=== PATIENT | male | born 1955 | race Caucasian/White ===

== ENCOUNTER 2024-03-12 08:16 | Inpatient (IN) | payer OTHER ==
[2024-03-12] MEDS ORDERED: ACETAMINOPHEN 325 MG TABLET PO PRN (13:26)
[2024-03-12] MEDS ORDERED: HYDROCODONE/APAP 5/325 MG TAB PO PRN (13:33)
[2024-03-12] MEDS: CARBIDOPA/LEVODOPA 25/100 TAB PO SCH (14:25)
[2024-03-12 14:50] VITALS: BMI 20.6
[2024-03-12 18:26] LABS: Specific Gravity > 1.030 (1.005-1.030); Sqamous Epithelial None Seen /HPF (None Seen); Urine Bacteria <20 /HPF (<20); Urine Bilirubin NEGATIVE (Negative); Urine Blood 3+ (OVER) (Negative); Urine Clarity Extremely Turbid (Clear); Urine Color Orange (Yellow); Urine Culture Reflex Order REFLEXED; Urine Glucose NEGATIVE (Negative); Urine Ketones TRACE (Negative); Urine Micro Reflex YN NO BILL MICROSCOPIC; Urine Mucus 4+ /HPF (None Seen); Urine Nitrite NEGATIVE (Negative); Urine Protein 1+ (Negative); Urine RBC >50 /HPF (None Seen); Urine Urobilinogen 2+ (Normal); Urine WBC >50 /HPF (<5); Urine WBC Clump Moderate /HPF (None Seen); Urine Yeast (Budding) Few /HPF (None Seen)
[2024-03-12] MEDS: ONDANSETRON 4 MG (ODT) TAB PO PRN (19:43)
[2024-03-12] MEDS: SENOSIDES 8.6 MG TAB PO SCH (20:29)
[2024-03-12] MEDS: MELATONIN 3 MG TABLET PO PRN (20:29)
[2024-03-12] MEDS: oxyBUTYnin chloride 5 MG TAB PO SCH (20:29)
[2024-03-12] MEDS: FAMOTIDINE 20 MG TAB PO SCH (20:29)
[2024-03-12] MEDS: APIXABAN 2.5 MG TABLET PO SCH (20:30)
[2024-03-12] MEDS: NYSTATIN PWDR 100000 UNIT/GM TOP SCH (20:30)
[2024-03-12] MEDS: ATORVASTATIN 40 MG TAB PO SCH (20:30)
[2024-03-13 04:22] LABS: Absolute Basophils 0.1 K/uL (0-0.5); Absolute Eosinophils 0.2 K/uL (0-0.5); Absolute Lymphocytes (CBC) 1.1 K/uL (0.7-4.9); Absolute Monocytes 0.5 K/uL (0.1-1.3); Absolute Neutrophil 3.9 K/uL (1.8-8.0); Basophils % 0.9 % (0-1.3); Eosinophils % 3.3 % (0-4.4); Hematocrit 33.3 % (39.6-49.0); Hemoglobin 11.3 g/dL (13.6-17.9); Lymphocytes % 18.6 % (15.3-44.8); MPV 10.1 fL (7.6-11.3); Monocytes % 9.4 % (3.3-12.3); Neutrophils % 67.8 % (41.7-73.7); Platelets 176 thou/uL (152-406); RBC Red Blood Cell Count 3.54 M/uL (4.33-5.43)
--- NOTE | 2024-03-13 04:33 | HP ---
Date of Admission: 03/12/2024 Time Of Service: 1 p.m. Chief Complaint: "I fell and broke my ribs." History Of Present Illness: Mr. Espinosa is a 68-year-old patient, who was admitted to [facility] on February 11, 2024, after a fall at home. He had been steadily declining over the past month due to worsening Parkinson's disease with shuffling gait, tremors, and increased stiffness. When he fell, carlos mendez suffered severe pain in the chest, actually in the left, and found there were 3 broken ribs and he was imaged. He developed a hemothorax and was seen at [facility] for procedure with rib plating that is the VATS procedure. It was done on February 15, 2024. He had a bronchoscope done as the proce dure was done and the sputum culture showed ESBL bacteremia in the sputum. He also had a transesopha geal echocardiogram and cardioversion to treat atrial fibrillation with rapid ventricular response th at was on the 19 of February. He returned to [facility] on 02/23/2024 for therapy. Since that time, he has had significant issues of pain management, treatment with antibiotics for the ESBL E. coli, which ended on March 04. He was still put on isolation precautions with lab monitoring t o determine if he needs additional antibiotics. His hospital course was complicated by weakness, poo r endurance, pain, and the atrial fibrillation which required ongoing monitoring. In addition, the h emothorax also needed subsequent followup. It is noted again prior to his hospitalization, he had a 1 month decline where while living alone, he was able to ambulate with a front wheel walker without a ssistive device. He did navigate a single step into his house and was still independent with ADLs, c ooking, and laundry. His daughter noted that he had concerns of nighttime getting up to use the bath room where he had a risk of falling. Currently, he is at a level of minimum assistance for bed mobil ization and maintaining upright posture while urinating and contact guard to minimal assistance for s it-to-stand transfers for balancing, standing. At this point, he is medically cleared for inpatient rehabilitation and will then be admitted to the unit for physical, occupational, and if need be speec h therapy along with medical management and discharge planning to avoid his rehospitalization and to help him thrive after discharge. Past Medical History: Atrial fibrillation, stroke, dyslipidemia, hypothyroidism, Parkinson's disease , video-assisted thorascopic surgery, transesophageal echocardiogram, stroke during surgery, heart va lve repair, knee replacement, and sepsis. Allergies: NO KNOWN DRUG ALLERGIES. Medications: Tylenol 650 mg every 4 hours as needed, Cordarone 200 mg daily, Eliquis 2.5 mg twice da jose luis, aspirin 81 mg daily, Lipitor 40 mg at bedtime, Sinemet 25/100, he takes 2 tabs in the morning, 1 at noon, and 1 in the evening, vitamin D 5000 units daily, Pepcid 20 mg twice daily, ferrous sulfate 325 mg daily, [place] 5/325 every 6 hours as needed, levothyroxine 0.112 mg daily, lidocaine patch arabella ly topically daily, melatonin 3 mg at bedtime, nystatin powder apply topically twice daily, Zofran 4 mg every 4 hours as needed, Ditropan 5 mg twice daily, Senokot 8.6 mg twice daily, Ultram 50 mg every 6 hours as needed. He is also on Glycolax 17 g daily. Family History: Noncontributory. Social History: The patient lives with a family close by. No alcohol, tobacco, or IV drug use. Review of Systems: As noted, he has had increased stiffness, difficulty with gait and balance, and mild tremor, especial ly worse in the morning when he is off his Parkinson's medication prior to receiving his first dose i n the morning. Current Level Of Functioning: Setup assistance for eating, setup also for oral hygiene and toileting , moderate assistance for his showering, upper body dressing, lower body dressing, donning and doffin g footwear, moderate assistance for rolling [id number], for lin-cj-[id number], and for sliding in the b ed. For transfers from bed to chair to toilet, all moderate assistance. For ambulation, contact loretta shaw assistance. With a rolling walker, he covered 125 feet. Review of Systems: He denies any recent fevers or chills. Some mild shortness of breath, myalgias, arthralgias. No kindra h. No headaches. No active psychiatric issues. Some difficulty again with bowel and bladder, able to get to the bathroom in time. No other positives on the systems review. Physical Examination: Vital Signs: Blood pressure 132/85, pulse 76, respiratory rate 16, temperature 97.2, oxygen saturati on 98%. Weight 147 pounds, height 5 feet 11 inches, BMI 20. General: Mr. Espinosa is resting comfortably. He reports mild pain in the rib area where he had frac tures and some mild pain in the left knee and he has right rib fractures. HEENT: He is otherwise normocephalic and atraumatic. His sclerae are anicteric. Oropharynx is mois t. Neck: Supple. Chest: Clear. Heart: Regular. Extremities: No significant edema in the extremities. Neurological: He has no focal deficits with guarding where he has rib fractures and some mild pain i n the knee. Otherwise, feet moving well. Arms are moving well without significant restrictions. Rehabilitation And Medical Assessment And Plan: Mr. Espinosa is admitted to the inpatient rehabilitat ion unit with impairment category 06, neurologic condition. His impairment group code is 03.2, parki nsonism. Etiologic diagnosis, Parkinson's disease. His comorbidities are atrial fibrillation, debil ity, decreased physical functioning, decreased mobility, hematuria, hypercholesterolemia, hyponatremi a, hypothyroidism, anemia, he is status post thoracotomy and multiple rib fractures. Plan: 1.He will have physical, occupational, and if need be speech therapy for 3.5 hours, 5 of 7 days. We will continue the carbidopa/levodopa 25/100, 2 in the morning, 1 at noon, and 1 at afternoon for Par kinson's disease. Continue Lipitor 40 mg at bedtime for dyslipidemia. Continue aspirin 81 mg daily and Eliquis 2.5 mg daily for stroke and DVT risk reduction. 2.Continue amiodarone 200 mg daily for heart rate control and blood pressure management. Also, Norc o 5/325 and Tylenol 650 mg as needed for pain every 6 hours. Vitamin D for low vitamin D. Continue ferrous sulfate for anemia, Pepcid for GE reflux, and Synthroid 0.112 mg daily for hypothyroidism, li docaine patch apply to the rib fractures, melatonin for insomnia, Zofran for reflux, Mycostatin powde r for fungal infection, Ditropan for urinary retention, Senokot-S for constipation, tramadol for mild -to-moderate pain. Comorbidities That Are Impacting His Rehabilitation: He has had the ESBL sputum cultured, has been t reated. As need be, he will be reassessed with repeat chest x-ray if there is a cough, there will be sputum collected and cultures addressed again and if need be, antibiotics continued. May have Pulmo nary Service to assist. In addition, his Parkinson's disease is an issue where he is likely of recen t fall likely resulting in his rib fractures, so fall precautions to be strongly adhered to at all ti mes with gait belt and rolling walker. Rehab Specific Plan: Mr. Espinosa will have physical, occupational, and speech therapy if need be for 3.5 hours, 5 of 7 days to improve his ability to transfer from bed to chair to toilet to shower and to go up and down steps. Also to improve his capacity to ambulate 250 feet with modified independenc e. He uses rolling walker, propel a wheelchair 250 feet with modified independence, and go up and do wn 10 steps with modified independence. Mr. Espinosa has a good understanding of the process of admission to the inpatient rehabilitation unit , how he will receive and benefit from physical, occupational, and again if need be speech therapy. Additional help from the Infectious Disease Service, the Orthopedic Service, the Cardiology, and the Pulmonology Services will be sought if need be. He will have 24 hours a day group home, daily p hysician evaluation and management, and social work msw evaluation and management for discharge plann ing along with all the therapy needs. Given his complex medical condition and the risk of further co mplications, rehabilitation cannot be safely or affectively performed at a lower level facility such as group home. Barriers To Discharge: Given the Parkinson's disease which has worsened and resulting in his fall, carlos mendez may require a facility with 24-hour supervision as he is likely to fall again if his Parkinson's di sease is not optimized and if he is not able to achieve good flexibility, control, stability, and end urance as he ambulates. Length of stay is about 13 to 14 days. Disposition: Home with family and continue therapy via Home Health. Prognosis: Good. Rehab Specific Goals: 1.Become independent with upper and lower body dressing, donning and doffing footwear, for toileting and showering. 2.Independently ambulate 250 feet with a rolling walker. 3.Independently propel a wheelchair 250 feet. 4.Independently go up and down 10 steps with bilateral handrails. 5.Independently perform all cognitive functioning. The above goals were reviewed with Mr. Espinosa and he is in agreement. By signing this document, I acknowledge I personally performed a full physical examination on Mr. Cody diez no later than 24 hours after his admission to the inpatient rehabilitation facility and determin ed that he is able to tolerate the above course of treatment at an intensive level for a reasonable p eriod of time. A detailed individualized plan of care for him will be completed by hospital day 4 ba sarbjit on the preadmission screen, history and physical, and therapy evaluations. ANI Voice ID: [id number]
[2024-03-13 04:53] LABS: Albumin 2.8 g/dL (3.4-5.0); Anion Gap 8.8 mEq/L (5.0-15.0); Potassium 3.8 mEq/L (3.5-5.1); Prealbumin 24.8 mg/dL (20-40)
[2024-03-13] MEDS: HYDROCODONE/APAP 5/325 MG TAB PO PRN (05:06)
[2024-03-13] MEDS: LEVOTHYROXINE SOD 0.112 MG TAB PO SCH (06:48)
[2024-03-13] MEDS ORDERED: CARBIDOPA/LEVODOPA 25/100 TAB PO SCH (08:00)
[2024-03-13] MEDS: AMIODARONE HCL 200 MG TAB PO SCH (09:08)
[2024-03-13] MEDS: VITAMIN D 5,000 UNIT CAP PO SCH (09:09)
[2024-03-13] MEDS: LIDOCAINE 4% PATCH TOP SCH (09:09)
[2024-03-13] MEDS: POLYETHYL GLY 3350 17 GM/DOSE PO SCH (09:09)
[2024-03-13] MEDS: ASPIRIN 81 MG CHEWABLE TABLET PO SCH (09:09)
[2024-03-13] MEDS: FERROUS SULFATE 325 MG TAB PO SCH (09:09)
[2024-03-13] MEDS: CARBIDOPA/LEVODOPA 25/100 TAB PO SCH ×2 (09:10→20:50)
[2024-03-13] MEDS ORDERED: methocarbamoL 500 MG TAB PO PRN (13:58)
[2024-03-13] MEDS: GABAPENTIN 100 MG CAP PO SCH (14:17)
[2024-03-13] MEDS: CYANOCOBALAMIN 1000MCG/ML INJ IM ONE (20:50)
[2024-03-13] MEDS: ATORVASTATIN 80 MG TAB PO SCH (20:51)
--- NOTE | 2024-03-14 02:14 | PN ---
Date of Progress Note: 03/13/2024 Time Of Service: 1:35 p.m. Subjective: Mr. Espinosa is resting in bed. He did have his Parkinson's medications yesterday. He s aid he does not believe it has made a difference yet. In terms of mobility, he is a transfer and per forming his ADLs. Otherwise, he has no new or significant complaints. He did have pain in the ribs where he has suffered a fall and rib fractures and is status post a thoracotomy. Review of Systems: No fevers or chills. Pain in the flank where he has rib fractures. Otherwise, no new complaints. Physical Examination: Vital Signs: Blood pressure 102/71, pulse 67, respiratory rate 16, temperature 97.2, oxygen saturati on 99%. General: Mr. Espinosa is resting in bed. He is in no significant distress. Getting physical therapy through physical therapist. He has mild masked face, increased stiffness in the upper and lower ext remities and increased tone with diffuse weakness of upper and lower extremities. Laboratory Studies: White blood cell count 5.8, hemoglobin 11.3, platelets 176. Sodium 135, potassi um 3.8, chloride 101, carbon dioxide 28, BUN 19, creatinine 0.94, glucose 87. Magnesium 2.0. Calciu m 9.1. Albumin 2.8, prealbumin 24.8. His urinalysis did show extreme turbidity, specific gravity gr eater than 1.03, trace ketones, 3+ blood, 2+ urobilinogen, greater than 50 red blood cells, greater t luevano 50 white blood cells with clumps of moderate white blood cells, 4+ mucus, few budding yeast, 1+ p rotein, but negative nitrite and negative esterase. X-ray/imaging: No new x-rays or imaging. Medications: Tylenol 650 mg every 4 hours as needed; [place] 5/325 every 6 hours as needed; amiodarone 200 mg daily; Eliquis 2.5 mg twice daily; aspirin 81 mg daily; Lipitor 80 mg at bedtime; Sinemet 25/ 100 two in the morning, 1 in the afternoon; vitamin D 5000 units daily; Pepcid 20 mg twice daily; gisella starr sulfate 325 mg daily; gabapentin 100 mg 3 times daily; Synthroid 0.112 mg daily; lidocaine patch apply topically to rib fracture area; melatonin 3 mg at bedtime; Robaxin mg twice daily; Zofran 4 mg every 4 hours as needed; Ditropan 5 mg twice daily; senna 8.6 mg twice daily; Ultram 50 m g every 6 hours. Progress Made With Physical, Occupational, And Speech Therapy: With his physical therapy today, he w as able to do bed mobility with improvement in turning side to side in bed. [id number]-ev-[id number] transfers d one with min assist. He did bicycle ergometer for 10 minutes with 1 break. Ambulated 30 feet with c ontact guard assistance, mobilized wheelchair 110 feet with contact guard assistance and later on amb ulated 40 feet twice with contact guard assistance and much encouragement. With his occupational the rapy, moderate assistance with eapcot-kb-hof and moving all extremities. Toileting, minimal assistan ce. Upper body dressing, minimum assistance. Grooming is independent. Today with his speech, he di d have some aspects of receptive and expressive aphasia. In terms of his ability to follow commands, he is slow in responding to commands, but eventually was able to move the arms as instructed, but so mewhat difficult time crossing midline with instructions such as taking the right hand and touch the left ear. He eventually used the left hand to touch the left ear, but did not move his right arm and indicate when he was told to put the right index finger out. Mr. Espinosa is making slow progress so far, was just in rehabilitation unit for his Parkinson disease and fall and rib fracture on the right side. Assessment: Mr. Espinosa is a 68-year-old patient admitted to rehabilitation unit with parkinsonism. He has 3 rib fractures on the right after falling. His hematuria, hypercholesterolemia, hyponatremi a, hypothyroidism, thoracotomy and again the rib fractures and again atrial fibrillation. Plan: 1.We will continue with physical, occupational, and speech therapy for 3.5 hours, 5 of 7 days. 2.His carbidopa and levodopa has been adjusted to 2 in the morning, 1 at noon, and 1 in the afternoo n. May consider going to 2 in the morning, 2 at noon, and 2 in the afternoon depending on how patien t responds. Again all comorbid condition medications are noted are continued. Comorbidities That Are Impacting Rehabilitation: He does have ESBL cultures and treated with antibio tics, which have been discontinued and will continue to have adjustments with his Parkinson's medicin e as appropriate to improve his mobility, increased flexibility, and decreased fall risk. ALICE/JORDEN Voice ID: [id number] Report ID: [id number]
[2024-03-14] MEDS: CYANOCOBALAMIN 1000MCG/ML INJ IM ONE (08:40)
[2024-03-14] MEDS: CARBIDOPA/LEVODOPA 25/100 TAB PO SCH ×3 (08:40→17:41)
[2024-03-14] MEDS ORDERED: CARBIDOPA/LEVODOPA 25/100 TAB PO SCH (14:00)
[2024-03-14] MEDS: CYANOCOBALAMIN 1,000 MCG TAB PO SCH (14:18)
--- NOTE | 2024-03-15 00:06 | PN ---
Date of Progress Note: 03/14/2024 Time Of Service: 1 p.m. Subjective: Mr. Espinosa is resting in bed. His is at bedside. He says he may be just slightly better today than yesterday. His Parkinson's medicine was adjusted. He has no new complaints. He does have still some pain in his rib fracture site. Review of Systems: No fevers or chills. No nausea, vomiting. Mild pain at the right rib fracture sites. Physical Examination: Vital Signs: Blood pressure 106/65, pulse 74, respiratory rate 17, temperature 97.2, oxygen saturati on 97%. General: Mr. Espinosa again is resting in bed. HEENT: He is normocephalic, atraumatic. Sclerae anicteric. Oropharynx pink and moist. Neck: Supple. Chest: Clear. Extremities: No significant edema, cyanosis, or clubbing. Still has masklike face. No obvious trem ors increased tone in upper and lower extremities. Laboratory Studies: No new laboratory studies compared to yesterday. X-ray/imaging: No new x-rays or imaging. Medications: His medications have not been adjusted, so the carbidopa/levodopa being 2 tablets 3 emre es daily. In addition, he has vitamin B12 injections for energy, it is 1000 mcg orally daily. All m edications have been continued and changed. Progress Made With Physical, Occupational, And Speech Therapy: Today with physical therapy, he did a mbulate much better 80 feet 3 times with much encouragement and did so with contact guard assistance. He mobilized a wheelchair 80 feet twice with contact guard assistance. This was more distance than he did yesterday. With occupational therapy, self propelled a wheelchair from the gym and extra emre e to the room. [place] hair independently, washed face, complete oral care, all independently. 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 Mr. Espinosa is making slow, but steady progress with his physical and occupational therapy improvemen t after his Parkinson's symptoms worsened and he has debility. Assessment: Mr. Espinosa is a 68-year-old patient in the rehabilitation unit with Parkinson's disease and right-sided rib fractures 3. His hematuria is improving, dyslipidemia, hyponatremia, hypothyroi dism, thoracotomy, atrial fibrillation. Plan: 1.Continue with physical, occupational, and speech therapy for 3.5 hours, 5 of 7 days. 2.His carbidopa/levodopa was increased to 2 tablets 25/100 tablets 3 times daily. All other medicat ions continued. In addition, he is having sublingual vitamin B12 1000 mcg daily. Comorbidities That Are Impacting Rehabilitation: Currently, he has completed treatment for ESBL infe ction. His Parkinson's disease medications have been increased and his pain in the rib fracture site s managed by multiple modalities. He continues to make slow, but steady progress. ALICE/JORDEN Voice ID: [id number] Report ID: [id number]
[2024-03-15] MEDS: CARBIDOPA/LEVODOPA 25/100 TAB PO SCH (06:49)
[2024-03-15] MEDS: CRANBERRY FRUIT EXTRACT 200 MG CAP PO SCH (08:26)
[2024-03-15] MEDS ORDERED: POLYETHYL GLY 3350 17 GM/DOSE PO PRN (08:30)
[2024-03-15] MEDS ORDERED: ACETAMINOPHEN 500 MG TAB PO PRN (13:57)
--- NOTE | 2024-03-15 22:32 | RAD REPORT ---
EXAM DESCRIPTION: RAD - Abdomen 1 View (KUB) - 03/15/2024 8:16 pm CLINICAL HISTORY: constipation COMPARISON: No comparisons TECHNIQUE: Single AP view of the abdomen. FINDINGS: Nonobstructive bowel gas pattern. Moderate stool burden along the ascending colon. No air- fluid levels, free air, or pneumatosis. No suspicious calcifications. No significant bony abnormality. Rib plating hardware on the right. Sequelae of vertebral augmentati on at L1. Bilateral total hip arthroplasty hardware. IMPRESSION: Moderate stool burden along the ascending colon.
--- NOTE | 2024-03-16 00:09 | PN ---
Date of Progress Note: 03/15/2024 Time Of Service: 1:15 p.m. Subjective: Mr. Espinosa is resting in bed. He is in no acute distress. He still reports just sligh t subjective improvement in his ability to stand, transfer, ambulate. Review of Systems: No fevers, chills, nausea, vomiting, myalgias, arthralgias, rash. No psychiatric complaints. Physical Examination: Vital Signs: Blood pressure 110/78, pulse 53, respiratory rate 16, temperature 97, oxygen saturation 99%. General: Mr. Espinosa is resting in bed. Neuro: Still has masklike face, increased tone. No focal weakness. Diffuse weakness of lower extre mities. No focal sensory deficits. Laboratory Studies: No new laboratory studies. X-ray/imaging: No new x-rays or imaging. Medications: His medications have been reviewed and as noted, Sinemet was increased to 25/100, two 3 times daily. Other medications are unchanged. Progress Made With Physical And Occupational Therapy: Today with physical therapy, ambulated 75 feet 3 times with contact guard assistance. He was able to go up and down 5 steps with bilateral handrai ls with contact guard assistance. He mobilized a wheelchair 175 feet with standby assistance requiri ng some verbal cues. Kbznux-nj-tom transfer done with standby assistance and verbal cues for hand pl acement. With occupational therapy, he requires standby assistance for shower transfer and wheelchai r to edge of bed transfer also. He did have low blood pressure around 94/75 while working with the ccupational therapist. With speech, confrontational naming completed for common object pictures with 90% accuracy and self correction and maximum cues. Yes/no questions answered with 73% accuracy. Fi ve concrete items named during divergent naming task with moderate assistance. Mr. Espinosa is making good progress so far with his recovery after his Parkinson's medications were a djusted. Assessment: Mr. Espinosa is a 68-year-old patient in the rehabilitation unit with Parkinson's disease and debility. He did fall and have 3 fractured ribs on the right and those are no longer a big fact or as they are managed well with multiple pain modalities including pain patch and neuromodulator. H e has dyslipidemia, hyponatremia, hypothyroidism, thoracotomy, and atrial fibrillation along with dec reased physical functioning and decreased mobility. Plan: 1.Continue with physical, occupational, and speech therapy for 3.5 hours, 5 of 7 days. 2.Continue with all medications as noted including the Sinemet, tramadol for pain, Senokot for const ipation, Ditropan for urinary retention, Zofran for nausea, nystatin powder for infection, Robaxin fo r muscle relaxation, melatonin for insomnia, lidocaine patch for pain, Synthroid for hypothyroidism, gabapentin for neuropathic pain. Pepcid for reflux, vitamin B12 for his energy improvement, Lipitor for dyslipidemia, aspirin for stroke risk reduction, and Tylenol along with [place] as needed for pain. Comorbidities That Are Impacting Rehabilitation: He does have multiple comorbidities; however, they are stably managed and do not negatively impact rehabilitation. ALICE/JORDEN Voice ID: [id number] Report ID: [id number]
[2024-03-16] MEDS: TRAMADOL HCL 50 MG TAB PO PRN (07:36)
[2024-03-16] MEDS: POLYETHYL GLY 3350 17 GM/DOSE PO SCH (11:37)
--- NOTE | 2024-03-16 13:20 | P.RH.PN ---
Estimated Length of Stay: 13 Expected Discharge Date: 03/24/24 Discharge Disposition Plan: Home Family Support: Yes [facility] Goal: Mobility, Transfers, Self Care Vital Signs: Last Vital Signs Temp 96.8 F 03/16/24 06:31 Pulse 70 03/16/24 06:31 Resp 16 03/16/24 08:36 BP 115/76 03/16/24 06:31 Pulse Ox 95 03/16/24 08:36 Laboratory: Laboratory Last Values WBC 5.80 thou/uL (4.3-10.9) 03/13/24 03:38 RBC 3.54 M/uL (4.33-5.43) L 03/13/24 03:38 Hgb 11.3 g/dL (13.6-17.9) L 03/13/24 03:38 Hct 33.3 % (39.6-49.0) L 03/13/24 03:38 MCV 94.0 fL (80-100) 03/13/24 03:38 MCH 32.0 pg (27.0-35.0) 03/13/24 03:38 MCHC 34.0 g/dL (32.0-36.0) 03/13/24 03:38 RDW 17.0 % (12.1-15.2) H 03/13/24 03:38 Plt Count 176 thou/uL (152-406) 03/13/24 03:38 MPV 10.1 fL (7.6-11.3) 03/13/24 03:38 Neutrophils % 67.8 % (41.7-73.7) 03/13/24 03:38 Lymphocytes % 18.6 % (15.3-44.8) 03/13/24 03:38 Monocytes % 9.4 % (3.3-12.3) 03/13/24 03:38 Eosinophils % 3.3 % (0-4.4) 03/13/24 03:38 Basophils % 0.9 % (0-1.3) 03/13/24 03:38 Absolute Neutrophils 3.9 K/uL (1.8-8.0) 03/13/24 03:38 Absolute Lymphocytes 1.1 K/uL (0.7-4.9) 03/13/24 03:38 Absolute Monocytes 0.5 K/uL (0.1-1.3) 03/13/24 03:38 Absolute Eosinophils 0.2 K/uL (0-0.5) 03/13/24 03:38 Absolute Basophils 0.1 K/uL (0-0.5) 03/13/24 03:38 Sodium 135 mEq/L (136-145) L 03/13/24 03:38 Potassium 3.8 mEq/L (3.5-5.1) 03/13/24 03:38 Chloride 101 mEq/L (98-107) 03/13/24 03:38 Carbon Dioxide 29 mEq/L (21-32) 03/13/24 03:38 Anion Gap 8.8 mEq/L (5.0-15.0) 03/13/24 03:38 BUN 19 mg/dL (7-18) H 03/13/24 03:38 Creatinine 0.94 mg/dL (0.70-1.30) 03/13/24 03:38 Est GFR (CKD-EPI) 87 ml/min (=/>90) L 03/13/24 03:38 Glucose 87 mg/dL (74-106) 03/13/24 03:38 Calcium 9.1 mg/dL (8.5-10.1) 03/13/24 03:38 Magnesium 2.0 mg/dL (1.6-2.4) 03/13/24 03:38 Albumin 2.8 g/dL (3.4-5.0) L 03/13/24 03:38 Prealbumin 24.8 mg/dL (20-40) 03/13/24 03:38 Urine Color [place] (Yellow) 03/12/24 18:13 Urine Clarity Extremely turbid (Clear) H 03/12/24 18:13 Urine pH 6.0 (5.0-7.0) 03/12/24 18:13 Ur Specific [place] > 1.030 (1.005-1.030) H 03/12/24 18:13 Glucose (UA)(Auto) Negative (Negative) 03/12/24 18:13 Urine Ketones Trace (Negative) H 03/12/24 18:13 Urine Blood 3+ (over) (Negative) H 03/12/24 18:13 Urine Nitrite Negative (Negative) 03/12/24 18:13 Urine Bilirubin Negative (Negative) 03/12/24 18:13 Urine Urobilinogen 2+ (Normal) H 03/12/24 18:13 Ur Leukocyte Esterase Negative Rl/uL (Negative) 03/12/24 18:13 Urine RBC >50 /HPF (None Seen) H 03/12/24 18:13 Urine WBC >50 /HPF (<5) H 03/12/24 18:13 Urine WBC Clumps Moderate /HPF (None Seen) H 03/12/24 18:13 Ur Squamous Epith Cells None seen /HPF (None Seen) 03/12/24 18:13 Urine Bacteria <20 /HPF (<20) 03/12/24 18:13 Urine Mucus 4+ /HPF (None Seen) H 03/12/24 18:13 Urine Yeast (Budding) Few /HPF (None Seen) H 03/12/24 18:13 Urine Culture Reflexed Reflexed 03/12/24 18:13 Urine Total Protein 1+ (Negative) H 03/12/24 18:13 Weight: 147 lb 14.4 oz Wound Present: No Closed Surgical Incision Present: Yes Negative Pressure Wound Therapy Present: No Physician Update: Labs reviewed and are stable. Still has mild to mod pain in the right rib fracture site. Expressive aphasia from a chronic stroke. Easy fatigue. Parkinson's medication was doubled. SBA with bed mobility, CGTA with transfers. RW 75' x 3 with CGA, WC 150' with CGA and 10 steps with CGA. Summary: Patient's care plan and jail goals have been reviewed and revised as necessary. Please see the Rehabilitation Signature page for all necessary signatures.
[2024-03-16] MEDS: BISACODYL 10 MG RECTAL SUPP PR PRN (15:27)
[2024-03-17] MEDS ORDERED: FLEET ENEMA ADULT PR PRN (19:32)
[2024-03-17] MEDS: ENSURE ENLIVE 237 ML CAN PO SCH (19:58)
[2024-03-19 14:22] LABS: Absolute Basophils 0.1 K/uL (0-0.5); Absolute Eosinophils 0.2 K/uL (0-0.5); Absolute Lymphocytes (CBC) 0.8 K/uL (0.7-4.9); Absolute Monocytes 0.4 K/uL (0.1-1.3); Absolute Neutrophil 4.3 K/uL (1.8-8.0); Basophils % 0.9 % (0-1.3); Eosinophils % 2.8 % (0-4.4); Hemoglobin 11.5 g/dL (13.6-17.9); Lymphocytes % 13.7 % (15.3-44.8); MCH 30.5 pg (27.0-35.0); MCHC 31.9 g/dL (32.0-36.0); MCV 95.7 fL (80-100); MPV 10.2 fL (7.6-11.3); Monocytes % 6.3 % (3.3-12.3); Neutrophils % 76.3 % (41.7-73.7); Platelets 149 thou/uL (152-406); RBC Red Blood Cell Count 3.76 M/uL (4.33-5.43)
[2024-03-19 14:38] LABS: Anion Gap 8.3 mEq/L (5.0-15.0); Potassium 4.3 mEq/L (3.5-5.1)
[2024-03-19] MEDS: HYDROCODONE/APAP 5/325 MG TAB PO PRN (19:12)
--- NOTE | 2024-03-19 23:56 | PN ---
Date of Progress Note: 03/19/2024 Time Of Service: 1:20 p.m. Subjective: Mr. Espinosa is in bed. Family is at bedside. He does report some improvement in his ab ility to mobilize, ease of movement, ambulating, and mobilizing with a wheelchair along with sit-to-s tand transfers. Denies any new complaints. Review of Systems: He did have nausea with some vomiting that occurred after lunch. There is Zofran for which the patie nt did receive that. He ate breakfast without any difficulty. He had no nausea and vomiting. He di d have a bowel movement reportedly earlier today. Physical Examination: Vital Signs: Blood pressure 119/85, pulse 91, respiratory rate 16, temperature 97.0, oxygen saturati on 95% to 100%. General: Mr. Espinosa is sitting in a chair. He is somewhat nauseated, did have an emesis bag and he did vomit a moderate amount and then was able to receive some Zofran sublingual, which did work to h elp with the nausea and vomiting. Otherwise, he has no focal or new deficits. Does have a masklike face, increased tone, and stiffness in upper and lower extremities. Chest: Clear. Heart: Regular. Extremities: No significant edema, cyanosis, or clubbing. Medications: Medications have been reviewed and include Zofran as needed, carbidopa/levodopa 25/100 three times daily, Lipitor at bedtime, aspirin for stroke risk reduction, Eliquis 2.5 mg twice daily, Cordarone for heart rate control, Synthroid, melatonin, Robaxin, Ditropan, Senokot, Fleet Enema as n eeded, and tramadol. X-ray/imaging: No new x-rays or imaging recently. Laboratory Studies: White blood cell count 5.6, hemoglobin 11.5, platelets 149. Sodium 133, potassi um 4.3, chloride 100, carbon dioxide 29, BUN 17, creatinine 0.89. His prealbumin was 24.8 on the 7th and albumin 2.8. Progress Made With Physical, Occupational, And Speech Therapy: Today with physical therapy performed multiple avcdhy-ea-hod transfers independently, dvu-uq-uxcym transfers independently. He did ambula te 75 feet twice and once 60 feet with contact guard assistance with a rolling walker. She mobilized wheelchair 250 feet with standby assistance. With occupational therapy, propelled a wheelchair 250 feet with frequent rest breaks. With speech, answered yes/no questions with 90% accuracy and moderat e assistance. Confrontational naming completed with 85% accuracy and moderate cues for correcting ph onemic errors and paraphasias. Mr. Espinosa is making improved progress with physical, occupational, and speech therapy. Assessment: Mr. Espinosa is a 68-year-old patient in rehabilitation unit with Parkinson disease. ___ have been improved in terms of increase and his clinical symptoms have improved. He still hsu ve some hyponatremia, nausea, vomiting, and has hypothyroidism dyslipidemia, hyponatremia, atrial fib rillation, decreased physical function, decreased mobility. Plan: We will continue with Zofran for nausea. Continue with physical, occupational, and speech the rapy, 3.5 hours, 5 of 7 days. Continue with Sinemet for Parkinson disease, tramadol for pain, Senoko t for constipation, Ditropan for urinary retention, Synthroid for hypothyroidism, gabapentin for neur opathic pain, Pepcid for his reflux. Comorbidities That Are Impacting Rehabilitation: Currently, nausea and vomiting. Mitigated by Zofra n, will be given in the morning for the next 2 days to help the patient decrease the chances of addit ional issues, which were perhaps related to lunch as he did not have nausea, vomiting after breakfast in the morning. LB/MODL Voice ID: [id number] Report ID: [id number]
[2024-03-21] MEDS ORDERED: POLYETHYL GLY 3350 17 GM/DOSE PO PRN (14:56)
[2024-03-21] MEDS: DOCUSATE NA/SENNA CONC 1 TAB PO SCH (22:01)
--- NOTE | 2024-03-21 23:21 | PN ---
Date of Progress Note: 03/21/2024 Time Of Service: 1:35 p.m. Subjective: Mr. Espinosa is in bed. He says he is doing slightly better today than yesterday, but st ill has some complaints of stiffness and pain, and the pain is mostly in the abdominal region, althou gh he did have a good bowel movement today. Review of Systems: He has mild nausea, but earlier in the day, some vomiting. Zofran is now scheduled before breakfast and before lunch. Physical Examination: Vital Signs: Blood pressure 103/79, pulse 75, respiratory rate 15, temperature 97.1, oxygen saturati on 96% on room air. General: Mr. Espinosa is lying in bed in between therapy sessions. HEENT: He does appear normocephalic, atraumatic. Sclerae anicteric. Oropharynx moist. Neck: Supple. Chest: Clear. Heart: Regular. Extremities: No significant edema, cyanosis, clubbing noted. He does have masklike face, bradykines ia. Laboratory Studies: White blood cell count 5.6, hemoglobin 11.5, platelets 149. Sodium 133, potassi um 4.3, chloride 100, carbon dioxide 29, BUN 70, creatinine 0.89, magnesium 2.0, calcium 9.3, glucose 93, prealbumin 24.8, albumin 2.8. X-ray/imaging: No new x-rays or imaging. Medications: His medications have been reviewed and are unchanged. He is taking Senokot 2 at bedtim e for constipation and Glycolax 17 g daily for abdominal cramps. Progress Made With Physical, Occupational, And Speech Therapy: Today with physical therapy, multiple obfgol-ym-ztw transfers done independently, vuh-py-euses transfers done independently, vvzgp-hc-hbqd t transfers done with supervision. He ambulated with a rolling walker 125 feet 3 times with standby assistance. He is able to go up and down 15 steps with bilateral handrails and standby assistance an d performed wheelchair mobilization 175 feet independently. With speech, organizational thinking ski lls for convergent naming demonstrated with 60% accuracy. Divergent naming skills demonstrated for 5 items in a concrete category with maximum assistance. For occupational therapy, independent with be d mobility, ambulation, and from edge of bed to sink with a rolling walker. Self propel a wheelchair from room to gym with rest breaks due to fatigue, but was independent, independent with eating, lowe r body dressing independent. Mr. Espinosa is making great progress with his physical, occupational, and speech therapy and is radhati gareth ready to be able to be discharged to continue with therapy as aggressively as possible after [facility]. The patient will have Home Health to do physical therapy, occupational therapy. Assessment: Mr. Espinosa is a 68-year-old patient in the rehabilitation unit with Parkinson's that hsu s been optimized by medication adjustment. He does have hyponatremia, nausea, vomiting, hypothyroidi sm, dyslipidemia, atrial fibrillation, decreased physical functioning, decreased mobility. Plan: 1.Continue with physical, occupational, and speech therapy for 3.5 hours, 5 of 7 days. 2.Continue with medications, which include Sinemet for Parkinson's disease, Zofran for nausea, Senok ot for constipation, Synthroid for hypothyroidism, gabapentin for neuropathic pain, GE reflux treated with his Pepcid. Comorbidities That Are Impacting Rehabilitation: Currently, his nausea and vomiting are improved and Zofran again is scheduled. He does have some abdominal pain, but it is relieved somewhat as he has had bowel movements. LB/MODL Voice ID: [id number] Report ID: [id number]
[2024-03-22 11:47] LABS: Albumin 3.1 g/dL (3.4-5.0); Anion Gap 5.1 mEq/L (5.0-15.0); Potassium 5.1 mEq/L (3.5-5.1)
[2024-03-22 11:55] LABS: Absolute Basophils 0.1 K/uL (0-0.5); Absolute Eosinophils 0.1 K/uL (0-0.5); Absolute Lymphocytes (CBC) 0.6 K/uL (0.7-4.9); Absolute Monocytes 0.3 K/uL (0.1-1.3); Absolute Neutrophil 3.7 K/uL (1.8-8.0); Eosinophils % 3.1 % (0-4.4); Hematocrit 36.1 % (39.6-49.0); Hemoglobin 11.8 g/dL (13.6-17.9); Lymphocytes % 13.3 % (15.3-44.8); MCH 31.1 pg (27.0-35.0); MCHC 32.7 g/dL (32.0-36.0); MCV 95.2 fL (80-100); MPV 10.7 fL (7.6-11.3); Monocytes % 6.4 % (3.3-12.3); Neutrophils % 76.2 % (41.7-73.7); Nucleated Red Blood Cells % 0.1 % (0-0); Platelets 146 thou/uL (152-406); RBC Red Blood Cell Count 3.79 M/uL (4.33-5.43); Red Cell Distribution Width 16.2 % (12.1-15.2)
--- NOTE | 2024-03-22 23:29 | PN ---
Date of Progress Note: 03/22/2024 Time Of Service: 1:25 p.m. Subjective: Mr. Espinosa is resting in bed. He is feeling better about therapy today. He is ambulat ing a longer distance, has less stiffness, more ease of initiating movement, and he is otherwise doin g well with good bowel movements. No other complaints. Review of Systems: The nausea from the other day has improved significantly and has Zofran scheduled. Physical Examination: Vital Signs: Blood pressure 112/69, pulse 83, respiratory rate 17, temperature 97.2, oxygen saturati on 94%. General: Mr. Espinosa is resting in bed. HEENT: He does appear normocephalic, atraumatic. Sclerae are anicteric. Oropharynx pink and moist. Neck: Supple. Chest: Clear. Extremities: No significant edema, cyanosis, or clubbing. More ease of movement. Less stiffness no sherry. Laboratory Studies: White blood cell count 4.8, hemoglobin 11.8, platelets 146. Sodium 131, potassi um 5.1, chloride 100, BUN 18, creatinine 1.07, glucose is 91, calcium 9.7, prealbumin 22.0, albumin 3 .1. X-ray/imaging: No new x-rays or imaging. Medications: His medications have been reviewed and are unchanged. He has Senokot-S for constipatio n. Progress Made With Physical, Occupational, And Speech Therapy: Today with physical therapy, performe d multiple hymmjv-sh-fbl transfers independently, multiple nqk-bb-tjaql transfers also independently, ambulated 200 feet and 75 feet with standby assistance. Mobilized a wheelchair 300 feet independent ly. With occupational therapy, independent with safety awareness, independent with toileting, bathin g, upper body dressing, grooming, did require extra time, use of grab bar for studying and lower body . With speech, improved his BIM score from 5 to 14 and SLUMS score from 13 to 16, improved confronta tional naming to 80% accuracy. Mr. Espinosa is making great progress, improving in all areas of physical, occupational, and speech th erapy and he will be ready for discharge home this Tuesday or Tuesday. Assessment: Mr. Espinosa is a 68-year-old patient, admitted to the rehabilitation unit with Parkinson 's disease, from which he is doing very well and recovering well. He did have nausea and vomiting th at is improved, hypothyroidism, dyslipidemia, atrial fibrillation, decreased physical functioning, de creased mobility. Plan: 1.Continue with physical, occupational, and speech therapy for 3.5 hours, 5 of 7 days. 2.Continue with all medications for his comorbid conditions including gabapentin, Synthroid, Senokot , Pepcid, Zofran, and Sinemet. Comorbidities That Are Impacting Rehabilitation: Nausea, which is a big issue, has improved a lot an d he is doing much better, eating meals, although he says he does not enjoy the hospital food. ALICE/JORDEN Voice ID: [id number] Report ID: [id number]
--- NOTE | 2024-03-23 13:05 | P.RH.PN ---
Estimated Length of Stay: 13 Expected Discharge Date: 03/27/24 Discharge Disposition Plan: Home Family Support: Yes [facility] Goal: Mobility, Transfers, Self Care Vital Signs: Last Vital Signs Temp 97.0 F 03/23/24 07:42 Pulse 67 03/23/24 07:42 Resp 18 03/23/24 12:57 BP 101/68 03/23/24 07:42 Pulse Ox 95 03/23/24 12:57 Laboratory: Laboratory Last Values WBC 4.80 thou/uL (4.3-10.9) 03/22/24 11:05 RBC 3.79 M/uL (4.33-5.43) L 03/22/24 11:05 Hgb 11.8 g/dL (13.6-17.9) L 03/22/24 11:05 Hct 36.1 % (39.6-49.0) L 03/22/24 11:05 MCV 95.2 fL (80-100) 03/22/24 11:05 MCH 31.1 pg (27.0-35.0) 03/22/24 11:05 MCHC 32.7 g/dL (32.0-36.0) 03/22/24 11:05 RDW 16.2 % (12.1-15.2) H 03/22/24 11:05 Plt Count 146 thou/uL (152-406) L 03/22/24 11:05 MPV 10.7 fL (7.6-11.3) 03/22/24 11:05 Neutrophils % 76.2 % (41.7-73.7) H 03/22/24 11:05 Lymphocytes % 13.3 % (15.3-44.8) L 03/22/24 11:05 Monocytes % 6.4 % (3.3-12.3) 03/22/24 11:05 Eosinophils % 3.1 % (0-4.4) 03/22/24 11:05 Basophils % 1.0 % (0-1.3) 03/22/24 11:05 Absolute Neutrophils 3.7 K/uL (1.8-8.0) 03/22/24 11:05 Absolute Lymphocytes 0.6 K/uL (0.7-4.9) L 03/22/24 11:05 Absolute Monocytes 0.3 K/uL (0.1-1.3) 03/22/24 11:05 Absolute Eosinophils 0.1 K/uL (0-0.5) 03/22/24 11:05 Absolute Basophils 0.1 K/uL (0-0.5) 03/22/24 11:05 Sodium 131 mEq/L (136-145) L 03/22/24 11:05 Potassium 5.1 mEq/L (3.5-5.1) 03/22/24 11:05 Chloride 100 mEq/L (98-107) 03/22/24 11:05 Carbon Dioxide 31 mEq/L (21-32) 03/22/24 11:05 Anion Gap 5.1 mEq/L (5.0-15.0) 03/22/24 11:05 BUN 18 mg/dL (7-18) 03/22/24 11:05 Creatinine 1.07 mg/dL (0.70-1.30) 03/22/24 11:05 Est GFR (CKD-EPI) 75 ml/min (=/>90) L 03/22/24 11:05 Glucose 91 mg/dL (74-106) 03/22/24 11:05 Calcium 9.7 mg/dL (8.5-10.1) 03/22/24 11:05 Magnesium 2.0 mg/dL (1.6-2.4) 03/19/24 14:07 Albumin 3.1 g/dL (3.4-5.0) L 03/22/24 11:05 Prealbumin 22.0 mg/dL (20-40) 03/22/24 11:05 Urine Color [place] (Yellow) 03/12/24 18:13 Urine Clarity Extremely turbid (Clear) H 03/12/24 18:13 Urine pH 6.0 (5.0-7.0) 03/12/24 18:13 Ur Specific [place] > 1.030 (1.005-1.030) H 03/12/24 18:13 Glucose (UA)(Auto) Negative (Negative) 03/12/24 18:13 Urine Ketones Trace (Negative) H 03/12/24 18:13 Urine Blood 3+ (over) (Negative) H 03/12/24 18:13 Urine Nitrite Negative (Negative) 03/12/24 18:13 Urine Bilirubin Negative (Negative) 03/12/24 18:13 Urine Urobilinogen 2+ (Normal) H 03/12/24 18:13 Ur Leukocyte Esterase Negative Rl/uL (Negative) 03/12/24 18:13 Urine RBC >50 /HPF (None Seen) H 03/12/24 18:13 Urine WBC >50 /HPF (<5) H 03/12/24 18:13 Urine WBC Clumps Moderate /HPF (None Seen) H 03/12/24 18:13 Ur Squamous Epith Cells None seen /HPF (None Seen) 03/12/24 18:13 Urine Bacteria <20 /HPF (<20) 03/12/24 18:13 Urine Mucus 4+ /HPF (None Seen) H 03/12/24 18:13 Urine Yeast (Budding) Few /HPF (None Seen) H 03/12/24 18:13 Urine Culture Reflexed Reflexed 03/12/24 18:13 Urine Total Protein 1+ (Negative) H 03/12/24 18:13 Weight: 147 lb 14.4 oz Wound Present: No Closed Surgical Incision Present: Yes Negative Pressure Wound Therapy Present: No Physician Update: Labs reviewed, Na is low at 131. Stage II sacral ulcer. Stage I bruising at left back. Making fair overall progress with all therapy. He will have [facility] home [facility]. BIMS improved to 14, SLUMS at 16. Poor comprehension. Independent with bed mobility, supervision transfers. 175' with SBA, WC 250'. Independent with ADLs, toileting and bathing. Summary: Patient's care plan and halfway goals have been reviewed and revised as necessary. Please see the Rehabilitation Signature page for all necessary signatures.
[2024-03-26 04:20] LABS: Absolute Eosinophils 0.2 K/uL (0-0.5); Absolute Monocytes 0.4 K/uL (0.1-1.3); Absolute Neutrophil 2.7 K/uL (1.8-8.0); Basophils % 0.8 % (0-1.3); Eosinophils % 4.6 % (0-4.4); Hematocrit 34.8 % (39.6-49.0); Hemoglobin 11.5 g/dL (13.6-17.9); MCH 31.2 pg (27.0-35.0); MCHC 33.1 g/dL (32.0-36.0); MCV 94.3 fL (80-100); MPV 10.1 fL (7.6-11.3); Monocytes % 8.5 % (3.3-12.3); Neutrophils % 62.1 % (41.7-73.7); Nucleated Red Blood Cells % 0.1 % (0-0); Platelets 157 thou/uL (152-406); RBC Red Blood Cell Count 3.69 M/uL (4.33-5.43); Red Cell Distribution Width 16.8 % (12.1-15.2)
[2024-03-26 04:21] LABS: Anion Gap 8.9 mEq/L (5.0-15.0); Potassium 3.9 mEq/L (3.5-5.1)
[2024-03-26 07:08] VITALS: BP 123/83; TEMP 96.8
== END 2024-03-26 11:45 | disposition home health service (06) | DRG 948 ==
LOC: 5TH 12:20
PROVIDERS: ADMIT Psychiatry & Neurology Neurology with Special Qualifications in Child Neurology; ATTEND Psychiatry & Neurology Neurology with Special Qualifications in Child Neurology
DX: R53.81 Other malaise (principal); E87.1 Hypo-osmolality and hyponatremia; G20.A1 Parkinson's disease without dyskinesia, without mention of fluctuations; S22.41XD Multiple fractures of ribs, right side, subsequent encounter for fracture with routine healing; I48.91 Unspecified atrial fibrillation; E03.9 Hypothyroidism, unspecified; E78.5 Hyperlipidemia, unspecified; R31.9 Hematuria, unspecified; E78.00 Pure hypercholesterolemia, unspecified; D64.9 Anemia, unspecified; Z86.73 Personal history of transient ischemic attack (TIA), and cerebral infarction without residual deficits
CPT/HCPCS: 36415; 74018; 80048; 81001; 82040; 83735; 84134; 85025; 87086; 87088; 92507; 92523; 97110; 97116; 97129; 97163; 97165; 97530; 97542; J2001; J3420; Q0162

== ENCOUNTER 2024-04-17 17:14 | Emergency (ER) | payer OTHER, BC ==
[2024-04-17 17:56] LABS: Absolute Lymphocytes (CBC) 0.7 K/uL (0.7-4.9); Absolute Monocytes 0.3 K/uL (0.1-1.3); Basophils % 0.8 % (0-1.3); Eosinophils % 0.6 % (0-4.4); Hematocrit 33.2 % (39.6-49.0); Hemoglobin 10.8 g/dL (13.6-17.9); Lymphocytes % 11.5 % (15.3-44.8); MCH 30.7 pg (27.0-35.0); MCHC 32.7 g/dL (32.0-36.0); MCV 94.1 fL (80-100); Monocytes % 5.5 % (3.3-12.3); Neutrophils % 81.6 % (41.7-73.7); Platelets 141 thou/uL (152-406); RBC Red Blood Cell Count 3.52 M/uL (4.33-5.43); Red Cell Distribution Width 16.1 % (12.1-15.2)
[2024-04-17 17:59] LABS: PT Prothrombin Time 15.1 SECONDS (9.5-12.5); PTT, Activated Partial Thromb 31.4 SECONDS (24.3-36.9); Protime INR 1.39
[2024-04-17 18:01] LABS: Albumin/Globulin Ratio 0.7 (1.1-1.8); Bilirubin Direct 0.3 mg/dL (0-0.2); Bilirubin Indirect, Calculated 0.5 mg/dL (0.2-0.8); Bilirubin Total 0.8 mg/dL (0.2-1.0); Globulin 4.4 g/dL (2.3-3.5); Magnesium 2.2 mg/dL (1.6-2.4); Protein, Total 7.4 g/dL (6.4-8.2); Troponin High Sensitivity 19.6 pg/mL (<58.9)
[2024-04-17] MEDS ORDERED: MAGNESIUM SULFATE 1 gm IVPB 1 GM/100 ML BAG IV ONE (18:55)
--- NOTE | 2024-04-17 19:28 | RAD REPORT ---
EXAM DESCRIPTION: CT - Head Brain Wo Cont - 04/17/2024 5:50 pm CLINICAL HISTORY: [facility] COMPARISON: No comparisons TECHNIQUE: Noncontrast head CT images were obtained without IV contrast. Multiplanar reformats were generated and reviewed. All CT scans are performed using dose optimization technique as appropriate and may include automated exposure control or mA/KV adjustment according to patient size. FINDINGS: Left anterior temporal horn region of encephalomalacia, suggestive of sequelae of remote i schemia. A small region of encephalomalacia with underlying white matter volume loss is also present in the le ft frontal lobe basal aspect. A small elongated cortical focus of hyperdensity is present along its a nterior margin, measuring 8 mm in greatest dimension. No other evidence of intracranial hemorrhage, mass, or edema. Midline structures are unremarkable. Prominent ventricular caliber with overall moderate diffuse parenchymal volume loss. Patchy periventricular and deep white matter hypodensities, nonspecific, but suggestive of chronic sm all vessel ischemic changes. [place]-white matter differentiation is preserved, without evidence of acute infarct. No abnormal extra- axial fluid collections. Mastoid air cells and visualized portions of the paranasal sinuses are clear. No acute bony findings. IMPRESSION: Small focus of radiodensity along the margins of date left frontal region of encephaloma lacia anteriorly, may represent cortical mineralization versus small volume subarachnoid hemorrhage. Other chronic findings as above. The findings were communicated to Ken Wei on 04/17/2024 at 19:22 hours.
--- NOTE | 2024-04-17 19:53 | ER ---
Nurse's Notes [facility] Name: Charlie Espinosa Age: 68 yrs Sex: Male : 1955 Arrival Date: 04/17/2024 Time: 17:14 Bed 3 Private MD: Diagnosis: Nontraumatic subarachnoid hemorrhage, unspecified;Syncope;Prolonged QT;Pleural effusion, not elsewhere classified Presentation: 04/17 17:18 Chief complaint: EMS states: pt had a syncopal episode from a standing position, was kc6 caught by his daughter, did not hit the ground. Coronavirus screen: At this time, the client does not indicate any symptoms associated with coronavirus-19. Ebola Screen: No symptoms or risks identified at this time. Initial Sepsis Screen: Does the patient meet any 2 criteria? No. Patient's initial sepsis screen is negative. Does the patient have a suspected source of infection? No. Patient's initial sepsis screen is negative. Risk Assessment: Do you want to hurt yourself or someone else? Patient reports no desire to harm self or others. Onset of symptoms was April 17, 2024. 17:18 Method Of Arrival: EMS: [facility] kc6 17:18 Acuity: OUMAR 3 kc6 17:19 Care prior to arrival: Medication(s) given: zofran 4 mg, IV initiated. 20 GA, in the kc6 right forearm. Triage Assessment: 17:19 General: Appears in no apparent distress. comfortable, ill, well groomed, Behavior is kc6 calm, cooperative, appropriate for age. Pain: Denies pain. EENT: No signs and/or symptoms were reported regarding the EENT system. Neuro: Level of Consciousness is awake, alert, obeys commands, Oriented to person, place, time, situation, Appropriate for age Reports a syncopal episode weakness. Cardiovascular: Denies chest pain, shortness of breath, Heart tones S1 S2 present Capillary refill < 3 seconds Rhythm is sinus rhythm. Respiratory: Airway is patent Trachea midline Respiratory effort is even, unlabored, Respiratory pattern is regular, symmetrical. GI: No signs and/or symptoms were reported involving the gastrointestinal system. : No signs and/or symptoms were reported regarding the genitourinary system. Derm: No signs and/or symptoms reported regarding the dermatologic system. Skin with poor turgor Skin is dry, Skin is pale, Skin temperature is warm Wound noted mid-sternal area. Musculoskeletal: No signs and/or symptoms reported regarding the musculoskeletal system. Circulation, motion, and sensation intact. Capillary refill < 3 seconds, Range of motion: intact in all extremities. 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 - Infectious Disease History:: Denies. - Social history:: Smoking status: Patient denies any tobacco usage or history of. Screenin:22 [facility] ED Fall Risk Assessment (Adult) History of falling in the last 3 months, kc6 including since admission Yes- physiologic fall (2 pts) Confusion or Disorientation No (0 pts) Intoxicated or Sedated No (0 pts) Impaired Gait Yes (1 pt) Mobility Assist Device Used Yes (1 pt) Altered Elimination No (0 pt) Score/Fall Risk Level 3 or more points = High Risk. Abuse screen: Denies threats or abuse. Denies injuries from another. Nutritional screening: No deficits noted. Tuberculosis screening: No symptoms or risk factors identified. Assessment: 17:21 Reassessment: please see triage. [facility] 18:21 Reassessment: Patient appears in no apparent distress at this time. No changes from [facility] previously documented assessment. Patient and/or family updated on plan of care and expected duration. Pain level reassessed. Patient is alert, oriented x 3, equal unlabored respirations, skin warm/dry/pink. 19:47 Reassessment: Patient appears in no apparent distress at this time. Patient and/or bm8 family updated on plan of care and expected duration. Pain level reassessed. Patient is alert, oriented x 3, equal unlabored respirations, skin warm/dry/pink. c/o minor back pain. General: Appears in no apparent distress. uncomfortable, Behavior is calm, cooperative, appropriate for age. Pain: Complains of pain in left low back and right low back Pain does not radiate. Pain currently is 5 out of 10 on a pain scale. Neuro: No deficits noted. Level of Consciousness is awake, alert, obeys commands, Oriented to person, place, time, situation. Cardiovascular: Capillary refill < 3 seconds Patient's skin is warm and dry. Respiratory: Airway is patent Respiratory effort is even, unlabored, Respiratory pattern is regular, symmetrical, Breath sounds are clear bilaterally. GI: No deficits noted. Reports nausea, vomiting, but not while in er, stated that it was earlier today. : No deficits noted. No signs and/or symptoms were reported regarding the genitourinary system. EENT: No deficits noted. No signs and/or symptoms were reported regarding the EENT system. Derm: No signs and/or symptoms reported regarding the dermatologic system. Musculoskeletal: No signs and/or symptoms reported regarding the musculoskeletal system. 20:49 Reassessment: Patient appears in no apparent distress at this time. No changes from bm8 previously documented assessment. Patient and/or family updated on plan of care and expected duration. Pain level reassessed. Patient is alert, oriented x 3, equal unlabored respirations, skin warm/dry/pink. 21:06 Reassessment: report to mel reyes at [facility]. ems arrives for pt. bm8 Vital Signs: 17:18 BP 99 / 84; Pulse 98; Resp 18 S; Temp 97.7(O); Pulse Ox 100% on R/A; Weight 66.68 kg kc6 (R); Height 5 ft. 11 in. (R); Pain 0/10; 19:00 BP 93 / 76; Pulse 100; Resp 17 S; Pulse Ox 98% on R/A; kc6 19:47 BP 89 / 64; Pulse 103; Resp 19; Temp 97.7; Pulse Ox 100% ; Pain 5/10; bm8 20:00 BP 105 / 80; Pulse 97; Resp 22 S; Pulse Ox 98% on R/A; jw7 17:18 Body Mass Index 20.50 (66.68 kg, 180.34 cm) kc6 17:18 Pain Scale: Adult kc6 19:47 Pain Scale: Adult bm8 [place] Coma Score: 19:47 Eye Response: spontaneous(4). Motor Response: obeys commands(6). Verbal Response: bm8 oriented(5). Total: 15. ED Course: 17:17 Patient arrived in ED. kc6 17:17 Ken Wei DO is Attending Physician. ms3 17:18 Zaynab Pat, MEL is Primary Nurse. kc6 17:19 Triage completed. kc6 17:19 Arm band placed on. kc6 17:22 Patient has correct armband on for positive identification. Placed in gown. Bed in low kc6 position. Call light in reach. Side rails up X2. personnel monitor on. Pulse ox on. NIBP on. Warm blanket given. Pillow given. 17:39 Maintain EMS IV. Dressing intact. Good blood return noted. Site clean \T\ dry. Gauge \T\ sherly 6 site: 20G RFA. Inserted saline lock: 22 gauge in right antecubital area, using aseptic technique. Blood collected. 17:39 EKG done, by sample prep technician. reviewed by Ken Wei DO. kc6 17:51 CT Head Brain wo Cont In Process Unspecified. EDMS 18:19 Chest Single View XRAY In Process Unspecified. EDMS 19:00 Report given to MEL Guzman \T\ MEL Kim. kc6 19:40 [facility] Called to initiate transfer, spoke with Deysi. ty 19:46 Transferred call for [id number]. ty 19:47 Provided Education on: post er care. bm8 19:47 No provider procedures requiring assistance completed. bm8 20:50 Inserted saline lock: 18 gauge in left upper arm, using aseptic technique. ,using bm8 aseptic technique. ultrasound guided. 21:06 Patient transferred, IV remains in place. bm8 Administered Medications: 19:07 Drug: Magnesium Sulfate IVPB 1 grams IVPB once over 1 hrs Route: IVPB; Infused Over: 1 kc6 hrs; Site: right antecubital; 20:13 Follow up: Response: No adverse reaction; IV Status: Completed infusion; IV Intake: [id number] 20:48 Drug: Rocephin IV 1 grams IV at calculated rate once; Given slow IV push per pharmacy bm8 instructions Route: IV; Rate: calculated rate; Site: right antecubital; 21:27 Follow up: Response: No adverse reaction; IV Status: Completed infusion bm8 20:48 Drug: AZITHromycin IVPB 500 mg IVPB once over 1 hrs; (mix in 250 mL NS) Route: IVPB; bm8 Infused Over: 1 hrs; Site: right antecubital; 21:27 Follow up: Response: No adverse reaction; IV Status: Completed infusion; IV Intake: [id number] Medication: 19:47 VIS not applicable for this client. bm8 Point of Care Testing: Blood Glucose: 21:09 Blood Glucose: 118 mg/dL; bm8 Ranges: Intake: 20:13 IV: 50ml; Total: 50ml. jw7 21:27 IV: 10ml; Total: 60ml. bm8 Outcome: 19:53 ER care complete, transfer ordered by ms3 21:06 Transferred by ground EMS to [facility], Transfer form completed. bm8 X-rays sent w/ patient. 21:06 Condition: stable 21:06 Instructed on the need for transfer, Demonstrated understanding of instructions, follow-up care, 21:28 Patient left the ED. bm8 Signatures: Dispatcher [employer] EDMS Ken Wei DO DO ms3 Judy Barnes RN RN jw7 Zaynab Pat RN RN kc6 Mike Mueller Brad, RN RN bm8
--- NOTE | 2024-04-17 19:53 | EDPHYS ---
Physician Documentation [facility] Name: Charlie Espinosa Age: 68 yrs Sex: Male : 1955 Arrival Date: 04/17/2024 Time: 17:14 Bed 3 Private MD: ED Physician Ken Wei HPI: 04/17 18:52 This 68 yrs old Male presents to ER via EMS with complaints of Syncope. ms3 18:52 68-year-old male presents to the emergency department status post syncopal episode ms3 lasting approximately 2 minutes where he was lowered to the ground. EMS notes patient's blood pressure 98/63, heart rate 105. EMS notes they gave patient 4 mg Zofran, 150 mL normal saline. Patient denies pain at this time. Patient denies any alleviating or inciting factors. 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 - Infectious Disease History:: Denies. - Social history:: Smoking status: Patient denies any tobacco usage or history of. ROS: 18:52 Constitutional: Negative for fever, and chills. Cardiovascular: Negative for chest ms3 pain, and palpitations. Respiratory: Negative for shortness of breath, cough, wheezing, and pleuritic chest pain, Abdomen/GI: Negative for abdominal pain, nausea, vomiting, diarrhea, and constipation, 18:52 Neuro: Positive for syncope, Exam: 18:17 ECG was reviewed by the Attending Physician. ms3 18:52 Constitutional: This is a well developed, well nourished patient who is awake, alert, ms3 and in no acute distress. Head/Face: Normocephalic, atraumatic. Eyes: Pupils equal round and reactive to light, extra-ocular motions intact. Lids and lashes normal. Conjunctiva and sclera are non-icteric and not injected. Periorbital areas with no swelling, redness, or edema. Chest/axilla: Normal chest wall appearance and motion. Nontender with no deformity. Cardiovascular: Regular rate and rhythm with a normal S1 and S2. No gallops, murmurs, or rubs. Normal PMI, no JVD. No pulse deficits. Respiratory: Lungs have equal breath sounds bilaterally, clear to auscultation and percussion. No rales, rhonchi or wheezes noted. No increased work of breathing, no retractions or nasal flaring. Abdomen/GI: Soft, non-tender, with normal bowel sounds. No distension or tympany. No guarding or rebound. No evidence of tenderness throughout. Skin: Warm, dry with normal turgor. Normal color with no rashes, no lesions, and no evidence of cellulitis. Vital Signs: 17:18 BP 99 / 84; Pulse 98; Resp 18 S; Temp 97.7(O); Pulse Ox 100% on R/A; Weight 66.68 kg kc6 (R); Height 5 ft. 11 in. (R); Pain 0/10; 19:00 BP 93 / 76; Pulse 100; Resp 17 S; Pulse Ox 98% on R/A; kc6 19:47 BP 89 / 64; Pulse 103; Resp 19; Temp 97.7; Pulse Ox 100% ; Pain 5/10; bm8 20:00 BP 105 / 80; Pulse 97; Resp 22 S; Pulse Ox 98% on R/A; jw7 17:18 Body Mass Index 20.50 (66.68 kg, 180.34 cm) kc6 17:18 Pain Scale: Adult kc6 19:47 Pain Scale: Adult bm8 [place] Coma Score: 19:47 Eye Response: spontaneous(4). Motor Response: obeys commands(6). Verbal Response: bm8 oriented(5). Total: 15. MDM: 17:18 Patient medically screened. ms3 18:52 Differential Diagnosis: cardiac arrhythmia, idiopathic syncope, vasovagal episode. ms3 19:53 Data reviewed: vital signs, nurses notes, lab test result(s), radiologic studies, and ms3 as a result, I will transfer patient. Consideration of Admission/Observation Patient transferred to higher level of care. Management of patient was discussed with the following: Director Of Rooms: Neurology, Dr Dozier. Recommends transfer. I considered the following discharge prescriptions or medication management in the emergency department Medications were administered in the Emergency Department. See MAR. Independent interpretation of the following test(s) in the Emergency Department EKG: See my EKG interpretation above ekg monitor: rate is 99 beats/min, Rhythm is normal sinus rhythm, with no ectopy, Interpretation: normal rate, normal rhythm. Counseling: I had a detailed discussion with the patient and/or guardian regarding the historical points, exam findings, and any diagnostic results supporting the discharge/admit diagnosis, lab results, radiology results, the need for outpatient follow up, the need to transfer to another facility, for higher level of care, [facility] does not immediately have the required specialist. Special discussion: I discussed with the patient/guardian in detail that at this point there is no indication for admission to the hospital. It is understood, however, that if the symptoms persist or worsen the patient needs to return immediately for re-evaluation. ED course: Discussed CT findings with patient and his daughter. They understand agree with plan for transfer. All questions were answered. . 04/17 17:22 Order name: Basic Metabolic Panel; Complete Time: 18:04 ms3 04/17 17:22 Order name: CBC with Diff; Complete Time: 18:04 ms3 04/17 17:22 Order name: Hepatic Function; Complete Time: 18:04 ms3 04/17 17:22 Order name: Magnesium; Complete Time: 18:04 ms3 04/17 17:22 Order name: Protime (+inr); Complete Time: 18:04 ms3 04/17 17:22 Order name: Ptt, Activated; Complete Time: 18:04 ms3 04/17 17:22 Order name: Troponin High Sensitivity; Complete Time: 18:04 ms3 04/17 20:12 Order name: Blood Culture Adult (2) ms3 04/17 20:12 Order name: Lactate w/ 2H reflex if indic. ms3 04/17 21:04 Order name: Glucose, Ancillary Testing EDMS 04/17 21:21 Order name: Urinalysis W/Microscopic sp4 04/17 17:22 Order name: CT Head Brain wo Cont; Complete Time: 19:37 ms3 04/17 17:22 Order name: Chest Single View XRAY; Complete Time: 20:11 ms3 04/17 17:22 Order name: Cardiac monitoring; Complete Time: 17:22 ms3 04/17 17:22 Order name: EKG - Nurse/Tech; Complete Time: 17:39 ms3 04/17 17:22 Order name: IV Saline Lock; Complete Time: 17:22 ms3 04/17 17:22 Order name: Labs collected and sent; Complete Time: 17:39 ms3 04/17 17:22 Order name: NPO; Complete Time: 17:22 ms3 04/17 17:22 Order name: O2 Per Protocol; Complete Time: 17:22 ms3 04/17 17:22 Order name: O2 Sat Monitoring; Complete Time: 17:22 ms3 04/17 20:12 Order name: Accucheck; Complete Time: 20:50 ms3 04/17 20:12 Order name: IV Saline Lock - Large Bore; Complete Time: 20:47 ms3 04/17 20:12 Order name: Vital Signs; Complete Time: 20:14 ms3 EC:17 Rate is 94 beats/min. Rhythm is regular. QRS [place] is Normal. NE interval is normal. QRS ms3 interval is normal. QT interval is prolonged. Clinical impression: NSR w/ Non-specific ST/T Changes. Interpreted by me. Reviewed by me. Administered Medications: 19:07 Drug: Magnesium Sulfate IVPB 1 grams IVPB once over 1 hrs Route: IVPB; Infused Over: 1 kc6 hrs; Site: right antecubital; 20:13 Follow up: Response: No adverse reaction; IV Status: Completed infusion; IV Intake: [id number] 20:48 Drug: Rocephin IV 1 grams IV at calculated rate once; Given slow IV push per pharmacy bm8 instructions Route: IV; Rate: calculated rate; Site: right antecubital; 21:27 Follow up: Response: No adverse reaction; IV Status: Completed infusion bm8 20:48 Drug: AZITHromycin IVPB 500 mg IVPB once over 1 hrs; (mix in 250 mL NS) Route: IVPB; bm8 Infused Over: 1 hrs; Site: right antecubital; 21:27 Follow up: Response: No adverse reaction; IV Status: Completed infusion; IV Intake: [id number] Point of Care Testing: Blood Glucose: 21:09 Blood Glucose: 118 mg/dL; bm8 Ranges: Critical Glucose Levels:Adult <50 mg/dl or >400 mg/dl <40 mg/dl or >180 mg/dl Disposition Summary: 04/17/24 19:53 Transfer Ordered Notes: Transfer Location: [facility] ms3 Reason: Higher level of care ms3 Condition: Stable ms3 Problem: new ms3 Symptoms: are unchanged ms3 Accepting Physician: Dr Jones(04/17/24 21:28) bm8 Diagnosis - Nontraumatic subarachnoid hemorrhage, unspecified ms3 - Syncope ms3 - Prolonged QT ms3 - Pleural effusion, not elsewhere classified ms3 Forms: - Medication Reconciliation Form ms3 - SBAR form ms3 Signatures: Dispatcher [employer] EDMS Ken Wei, DO ms3 Zaynab Pat, RN RN kc6 Thomas Bird, RN RN bm8 Judy Barnes RN jw7 Corrections: (The following items were deleted from the chart) 17:23 17:23 BASIC METABOLIC PANEL+C.LAB.BRZ ordered. EDMS EDMS 17:23 17:23 CBC+H.LAB.BRZ ordered. EDMS EDMS 17:23 17:23 HEPATIC FUNCTION+C.LAB.BRZ ordered. EDMS EDMS 17:23 17:23 MAGNESIUM+C.LAB.BRZ ordered. EDMS EDMS 17:23 17:23 PROTIME (+INR)+COAG.LAB.BRZ ordered. EDMS EDMS 17:23 17:23 PTT, ACTIVATED+COAG.LAB.BRZ ordered. EDMS EDMS 17:23 17:23 Troponin High Sensitivity+C.LAB.BRZ ordered. EDMS EDMS 17:23 17:23 Head Brain Wo Cont+CT.RAD.BRZ ordered. EDMS EDMS 17:23 17:23 Chest Single View+RAD.RAD.BRZ ordered. EDMS EDMS 20:12 20:12 BLOOD CULTURE*+BA.LAB.BRZ ordered. EDMS EDMS 20:12 20:12 LACTATE+C.LAB.BRZ ordered. EDMS EDMS 20:13 19:53 Dr Jones ms3 ms3 21:21 21:21 Urinalysis W/Microscopic+U.LAB.BRZ ordered. EDMS EDMS 21:28 20:13 Dr Jones ms3 bm8
--- NOTE | 2024-04-17 20:00 | RAD REPORT ---
EXAM DESCRIPTION: Lud[place] Single View04/17/2024 6:18 pm CLINICAL HISTORY: syncope COMPARISON: Abdomen 1 View (KUB) dated 03/15/2024; Chest Abdomen Pelvis W Cont dated 03/29/2024 TECHNIQUE: Portable AP view of the chest. FINDINGS: Moderate right layering pleural effusion with underlying airspace opacification. No pneumo thorax. The cardiomediastinal contours are unremarkable. Sequelae of median sternotomy, valve replac ement, and right rib plating. IMPRESSION: Moderate right pleural effusion with underlying airspace opacification.
[2024-04-17] MEDS ORDERED: AZITHROMYCIN 500 MG INJ IVPB ONE (20:31)
[2024-04-17] MEDS ORDERED: CEFTRIAXONE 1000 MG/VIAL ONE (20:31)
[2024-04-17] MEDS ORDERED: NA CHLORIDE 0.9% 250 ML ONE (20:32)
[2024-04-17 21:57] LABS: Specific Gravity 1.021 (1.005-1.030); Sqamous Epithelial <5 /HPF (None Seen); Urine Bacteria <20 /HPF (<20); Urine Bilirubin NEGATIVE (Negative); Urine Blood 3+ (Negative); Urine Clarity Extremely Turbid (Clear); Urine Color Yellow (Yellow); Urine Crystals Unidentified Few /HPF (None Seen); Urine Culture Reflex Order REFLEXED; Urine Glucose NEGATIVE (Negative); Urine Ketones TRACE (Negative); Urine Micro Reflex YN NO BILL MICROSCOPIC; Urine Mucus 1+ /HPF (None Seen); Urine Nitrite NEGATIVE (Negative); Urine Protein 1+ (Negative); Urine RBC >50 /HPF (None Seen); Urine Urobilinogen 1+ (Normal); Urine Yeast (Budding) Trace /HPF (None Seen); Urine pH 5.5 (5.0-7.0)
[2024-04-17 22:13] VITALS: BP 105/80; TEMP 97.7; O2SAT 98
--- NOTE | 2024-04-19 12:15 | EKG ---
Test Date: 2024-04-17 Test Time: 17:29:45 Computer Aided Drafter: BULL MEASUREMENT RESULTS: Intervals: Rate: 94 [place]: 184 QRSD: 100 QT: 410 QTc: 512 [place]: P: -23 [place]: 184 QRS: 55 T: 8 INTERPRETIVE STATEMENTS: Normal sinus rhythm Prolonged QT Abnormal ECG Compared to ECG 03/29/2024 09:09:58 First degree AV block no longer present Electronically Signed On 04-19-24 12:13:46 CDT by Albino Jones
== END 2024-04-17 21:28 | disposition short-term general hospital (02) ==
LOC: ER 17:14
DX: I60.9 Nontraumatic subarachnoid hemorrhage, unspecified (principal); R55 Syncope and collapse; J90 Pleural effusion, not elsewhere classified; R94.31 Abnormal electrocardiogram [ECG] [EKG]; G20.A1 Parkinson's disease without dyskinesia, without mention of fluctuations; E78.00 Pure hypercholesterolemia, unspecified; Z86.73 Personal history of transient ischemic attack (TIA), and cerebral infarction without residual deficits; Z95.2 Presence of prosthetic heart valve
CPT/HCPCS: 96365; 96367; 96368; 93005; 87040 ×2; 87088; 85025; 81001; 87086; 80048; 36415; 83735; 85610; 82947; 80076; 83605; 85730; 84484; 70450; 71045; 99285; J3475; J7050; J0696